=== PATIENT | male | born 1955 | race Caucasian/White ===

== ENCOUNTER 2024-07-08 11:26 | Outpatient (CLI) | payer MEDICARE, SELFPAY | END 2024-07-08 11:27 | disposition home or self-care (01) | LOC: NFLDREF 07-10 02:41 | PROVIDERS: PCP Physician Assistant Medical; Referring Provider Physician Assistant Medical; Visit Provider Physician Assistant Medical | DX: E03.9 Hypothyroidism, unspecified (principal) | CPT/HCPCS: 84443 ==

== ENCOUNTER 2024-11-29 09:18 | Outpatient (CLI) | payer MEDICARE, SELFPAY | END 2024-11-29 09:19 | disposition home or self-care (01) | LOC: NFLDREF 12-04 11:21 | PROVIDERS: PCP Physician Assistant Medical; Referring Provider Physician Assistant Medical; Visit Provider Physician Assistant Medical | DX: E78.5 Hyperlipidemia, unspecified (principal); E03.9 Hypothyroidism, unspecified; R53.83 Other fatigue; Z12.5 Encounter for screening for malignant neoplasm of prostate; Z11.4 Encounter for screening for human immunodeficiency virus [HIV]; Z11.59 Encounter for screening for other viral diseases | CPT/HCPCS: 80053; 80061; 82306; 86703; 86803; G0103 ==

== ENCOUNTER 2024-12-04 11:46 | Outpatient (CLI) | payer MEDICARE, SELFPAY | END 2024-12-04 11:47 | disposition home or self-care (01) | LOC: LKVREF 11:47 | PROVIDERS: PCP Physician Assistant Medical; Visit Provider Physician Assistant Medical | DX: R53.83 Other fatigue (principal) | CPT/HCPCS: 84443 ==